=== PATIENT | male | born 1985 | race African-American/Black ===

== ENCOUNTER 2020-04-29 03:10 | Emergency (ER) | payer SELFPAY ==
--- NOTE | 2020-04-29 04:14 | RADIOLOGY REPORT (SQ) ---
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 HISTORY: 34-year-old patient with history of left hand pain, trauma. COMPARISON: None available FINDINGS: There is an acute fracture through the base of the left fourth metacarpal which has not intra-articular extension to the carpal metacarpal joint. There is diffuse overlying soft tissue swelling. No other fractures are seen. There is irregularity at the tip of the third digit which may be due to remote trauma. IMPRESSION: There is an acute, comminuted, intra-articular fractures of the base of the fourth metacarpal.
[2020-04-29] MEDS ORDERED: OXYCODONE-ACETAMINOPHEN 5-325 MG TABLET PO ONE (04:16)
[2020-04-29] MEDS ORDERED: PROMETHAZINE HCL 25 MG TABLET PO ONE (04:17)
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
[2020-04-29 05:14] VITALS: BP 127/62
== END 2020-04-29 05:15 | disposition home or self-care (01) ==
LOC: ER 03:10
DX: S62.345A Nondisplaced fracture of base of fourth metacarpal bone, left hand, initial encounter for closed fracture (principal); W51.XXXA Accidental striking against or bumped into by another person, initial encounter; Y93.89 Activity, other specified; F17.200 Nicotine dependence, unspecified, uncomplicated
CPT/HCPCS: 99284